=== PATIENT | male | born 1980 | race Caucasian/White ===

== ENCOUNTER → 2021-10-27 09:58 | Outpatient (CLI) | payer BC, SELFPAY ==
--- NOTE | 2021-10-27 10:05 | CT_ITS ---
FINAL REPORT TECHNIQUE: Axial images through the abdomen and pelvis were performed without contrast. This study was performed with techniques to keep radiation doses as low as reasonably achievable, (ALARA). Individualized dose reduction techniques using automated exposure control or adjustment of mA and/or kV according to the patient's size were employed. CLINICAL HISTORY: RT FLANK PAIN,HEMATURIA/ STAT FINDINGS: ABDOMEN: The lung bases are clear. The heart size is normal. Limited images of the liver are unremarkable. The spleen is normal. No adrenal mass is identified. The aorta is normal in caliber. There is no significant free fluid or adenopathy. There is moderate right hydroureteronephrosis secondary to a 2 mm right UVJ stone seen on image 96 of series 3. There is also a nonobstructing stone in the right renal collecting system measuring up to 4 mm. Left renal collecting system is unremarkable. PELVIS: The appendix is not identified. The urinary bladder is unremarkable. There is no significant free fluid or adenopathy. There are moderate hypertrophic changes of degenerative disc disease at L5-S1 with moderate bilateral neuroforaminal narrowing. IMPRESSION: Moderate right hydroureteronephrosis secondary to a 2 mm right UVJ stone. Nonobstructing right renal stone measuring 4 mm. Reviewed, Interpreted and Dictated by Hiram Burks MD Transcribed by Cheyanne Miguel Authenticated by Hiram Burks MD on 10/27/2021 11:17:05 AM [facility]
== END ==
PROVIDERS: PCP Family Medicine; Visit Provider Family Medicine
DX: R10.9 Unspecified abdominal pain (principal); R31.0 Gross hematuria
CPT/HCPCS: 74176

== ENCOUNTER → 2021-11-04 15:03 | Outpatient (CLI) | payer BC, SELFPAY ==
--- NOTE | 2021-11-04 15:06 | XR_ITS ---
FINAL REPORT CLINICAL HISTORY: KIDNEY STONE FINDINGS: A single view of the abdomen was obtained. There is a nonobstructive bowel gas pattern. There are no abnormally dilated loops of small bowel. There is a moderate-large amount of retained stool. Stool obscures the renal outlines. There is no definite renal stone. There is a probable small phlebolith in the right pelvis. IMPRESSION: Nonobstructive bowel gas pattern. Moderate-large amount of retained stool. No definite renal stone. Reviewed, Interpreted and Dictated by Marvin Carver III, MD Transcribed by Magali Sow Authenticated by Marvin Carver III, MD on 11/04/2021 04:47:40 PM [facility]
== END ==
PROVIDERS: PCP Family Medicine; Visit Provider Urology
DX: N20.0 Calculus of kidney (principal)
CPT/HCPCS: 74018